=== PATIENT | female | born 1955 | race Caucasian/White ===

== ENCOUNTER → 2017-03-28 | Outpatient (CLI) | payer OTHER ==
[~2017-03-28] VITALS: Ht 170.2 cm; Wt 82.1 kg
[~2017-03-28] MED LIST: ASPI81TA50 PO; CHOL10003 PO; EZET1TAB30 PO; FISH12002 PO; METF10002 PO; MULT1TAB87 PO
[2017-03-28] MEDS: REGADENOSON 0.4 MG/5 ML DISP.SYRIN. IV ONE (09:09)
--- NOTE | 2017-03-28 13:13 | RAD ---
APPROVED REPORT Test Type: Pharmacological Stress Nurse/Tech: MELECIO Pierson Test Indications: dypnea Cardiac History: High cholesterol, Diabetes Medications: See Electronic Medical Record Medical History: See Electronic Medical Record Resting ECG: SR NS ST/T Resting Heart Rate: 63 bpm Resting Blood Pressure: 163/75mmHg Pretest Chest Pain: None Nurse/Tech Notes NO ACUTE CHANGES. Consent: The procedure was explained to the patient in lay terms. Informed consent was witnessed. Ashutosh eout was entered into [employer]. History and Stress Test performed by JOHN Valenzuela, MARCELLO (R) (N) Pharm. Details Pharmacologic stress testing was performed using 0.4mg per 5ml of regadenoson given intravenously ove r 7-10 seconds. Stress Symptoms SOB, LOW BP @ 1 MIN 30 SEC. POST EXERCISE Reason for Termination: Infusion complete Target HR: No Max HR: 103 bpm 76% of Maximum Predicted HR: 135 bpm Exercise duration: 7 min:sec, Stage Max Blood Pressure: 128/61mmHg Chest Pain: No. ST Change: No. INTERPRETATION Stress EKG Conclusion: NO ACUTE CHAGES. Imaging Protocol IMAGE PROTOCOL: Rest Tc-99m/stress Tc-99m 1 day Rest: Stress: Viability: Radiopharm.Tc99m IwicbdbuzCz23c Sestamibi Cztk05vRk 32mCi Img Date 03/28/2017 03/28/2017 Inj-Img [id number]. 60min. Rest Admin Site:IV - Left HandAdministrator: JOHN Valenzuela ARRT (R)(N) Stress Admin Site: IV - Left HandAdministrator: JOHN Valenzuela ARRT (R)(N) STRESS DATA End Diast. Vol.80.0mlAv. Heart Rate70.0bpm LVEDV index BSA1.0mlCardiac Output0.1L/min End Syst. Vol.21.0mlCO Index BSA4.2L/min LVESV index BSA0.0mlMyocardial Uxxc146.0g Eject. Bzivmyrj96.0% Stress Rates Pk. Fill Rate3.29EDV/secLVtime Pk. Fill 242.30msec Pk. Empty Rate4.29ESV/secLVtime Pk. Btwcl685.35msec /3 Pk. Fill1.45EDV/sec Stress Scores Regional WT0.00Summed WT13.00 Regional WM0.00Summed WM1.00 The rest and stress images show normal perfusion, normal contraction and thickening. LV Perf. Quant 17 Seg. SSS0.00 17 Seg. SRS1.00 17 Seg. SDS0.00 Stress Defect Extent (% LAD)0.00Rest Defect Extent (% LAD)3.10Rev. Defect Extent (% LAD)0.00 Stress Defect Extent (% LCX) 0.00Rest Defect Extent (% LCX)0.00Rev. Defect Extent (% LCX)0.00 Stress Defect Extent (% RCA)0.00Rest Defect Extent (% RCA)0.00Rev. Defect Extent (% RCA)0.00 Stress Defect Extent (% SEEMA)0.00Rest Defect Extent (% SEEMA)2.80Rev. Defect Extent (% SEEMA)0.00 Other Information Quality:Good Risk Assessment: Low Risk Conclusion 1. No evidence of EKG changes. 2. Normal perfusion at stress/rest. 3. Low risk study. EF > 60%
--- NOTE | 2017-03-29 11:33 | CARD ---
APPROVED REPORT EXAM: Two-dimensional and M-mode echocardiogram with Doppler and color Doppler. Other Information Quality : Average Rhythm : NSR INDICATION Dyspnea 2D DIMENSIONS RVDd3.1 (2.9-3.5cm)Left Atrium(2D)3.1 (1.6-4.0cm) IVSd0.8 (0.7-1.1cm)Aortic Root(2D)2.7 (2.0-3.7cm) LVDd4.2 (3.9-5.9cm)LVOT Diameter1.9 (1.8-2.4cm) PWd0.8 (0.7-1.1cm)LVDs3.0 (2.5-4.0cm) FS (%) 30.0 %SV46.3 ml LVEF(%)57.5 (>50%) Aortic Valve AoV Peak Sebas.142.2cm/sAoV VTI30.9cm AO Peak GR.8.1mmHgLVOT Peak Sebas.104.3cm/s LVOT VTI 24.90cmAO Mean GR.4mmHg SOY (VMAX)2.25no9KMX (VTI)2.21cm2 Mitral Valve MV E Fvsmmord74.1cm/sMV DECEL SIMM423fh MV A Gjditpur77.9cm/sMV ZSJ95qf E/A Ratio0.8MV A Grycbima711wm MVA (PHT)2.79cm2 Tricuspid Valve TR P. Rzfthbuo055gs/sRAP YLXLYTZH2wmVl TR Peak Gr.37ilLmQYEV92njNa LEFT VENTRICLE The left ventricle is normal size. There is normal left ventricular wall thickness. Left ventricle sy stolic function is normal. The Ejection Fraction is 55-60%. There is normal LV segmental wall motion. Tissue Doppler imaging reveals mild left ventricular diastolic dysfunction. Transmitral Doppler flow pattern is Grade I-abnormal relaxation pattern. There is no ventricular septal defect visualized. RIGHT VENTRICLE The right ventricle is normal size. The right ventricular systolic function is normal. ATRIA The left atrium size is normal. The right atrium size is normal. The interatrial septum is intact wit h no evidence for an atrial septal defect or patent foramen ovale as noted on 2-D or Doppler imaging. AORTIC VALVE The aortic valve is normal in structure and function. The aortic valve is trileaflet. Doppler and Col or Flow revealed no significant aortic regurgitation. There is no significant aortic valvular stenosi s. MITRAL VALVE The mitral valve is normal in structure and function. There is no mitral valve stenosis. Doppler and Color Flow revealed trace to mild mitral regurgitation. TRICUSPID VALVE The tricuspid valve is normal in structure and function. Doppler and Color Flow revealed trace tricus pid regurgitation. The PA pressure was estimated at 20 mmHg. There is no tricuspid valve stenosis. PULMONIC VALVE The pulmonic valve is not well visualized. Doppler and Color Flow revealed no pulmonic valvular regur gitation. There is no pulmonic valvular stenosis. GREAT VESSELS The aortic root is normal in size. Pulmonary veins not recorded. The IVC is normal in size and collap ses >50% with inspiration. PERICARDIAL EFFUSION There is no evidence of significant pericardial effusion. Critical Notification Critical Value: No <Conclusion> Left ventricle systolic function is normal. The Ejection Fraction is 55-60%. Transmitral Doppler flow pattern is Grade I-abnormal relaxation pattern. Trace to mild mitral regurgitation. Trace tricuspid regurgitation. The PA pressure was estimated at 20 mmHg. There is no evidence of significant pericardial effusion.
== END | disposition home or self-care (01) ==
LOC: ECHO 07:49
PROVIDERS: ATTEND Internal Medicine Cardiovascular Disease
DX: I34.0 Nonrheumatic mitral (valve) insufficiency (principal); F43.8 Other reactions to severe stress; E78.00 Pure hypercholesterolemia, unspecified; E11.8 Type 2 diabetes mellitus with unspecified complications; R06.00 Dyspnea, unspecified; Z79.84 Long term (current) use of oral hypoglycemic drugs
CPT/HCPCS: 78452; 93017; 93306; 96374; 96375; 96376; A9500; J2785